=== PATIENT | male | born 1965 | race Caucasian/White ===

== ENCOUNTER → 2016-08-03 | Outpatient (CLI) | payer BC ==
[~2016-08-03] MED LIST: AMLO-110 PO; FEXO1TAB49 PO; IBUP-103 PO; LISI40TA PO; RIVA1TAB4 PO; TOPI25TA99 PO
--- NOTE | 2016-08-03 10:33 | DIAGNOSTIC IMAGING REPORT ---
LEFT LOWER EXTREMITY VENOUS DOPPLER HISTORY: Follow-up left lower extremity DVT. COMPARISON STUDY: Left lower extremity venous Doppler 05/01/2016. FINDINGS: There is normal compressibility, flow, and augmentation within the left lower extremity deep venous system. IMPRESSION: No DVT within the left lower extremity. Specifically, the left posterior tibial vein thrombus is no longer present. Electronically signed by: Subhash Cavanaugh M.D. 08/03/2016 10:31 AM Dictated Date/Time: 08/03/2016 10:30 AM
== END | disposition home or self-care (01) ==
LOC: C.ULTR 09:38
PROVIDERS: ATTEND Internal Medicine Hematology & Oncology
DX: I82.402 Acute embolism and thrombosis of unspecified deep veins of left lower extremity (principal)

== ENCOUNTER 2017-07-28 00:11 | Emergency (ER) | payer BC, OTHER ==
[~2017-07-28] VITALS: Ht 177.8 cm; Wt 112.0 kg
[2017-07-28 00:27] VITALS: Ht 177.8 cm; Wt 112.0 kg
[2017-07-28] MEDS ORDERED: OXYCODONE/ACETAMINOPHEN 5-325 TAB PO STA (00:52)
[2017-07-28] MEDS ORDERED: ASPI81TA28 PO (01:34)
[2017-07-28 02:16] VITALS: BP 147/96; PULSE 77; TEMP 36.7; O2SAT 97
--- NOTE | 2017-07-28 06:38 | DIAGNOSTIC IMAGING REPORT ---
HEAD CT NONCONTRAST CT DOSE: 651.12 mGy.cm HISTORY: Fall. Posterior head injury. TECHNIQUE: Multiaxial CT images of the head were performed without the use of intravenous contrast. Automated exposure control was utilized for this study. A dose lowering technique was utilized adhering to the principles of ALARA. Comparison: Head CT 10/25/2011. Findings: The paranasal sinuses and mastoid air cells are clear. The calvarium and skull base are intact. The ventricles and sulci are within normal limits. There is no mass, hematoma, midline shift, or acute infarct. Mild posterior scalp swelling. Impression: No acute intracranial abnormality. Electronically signed by: Subhash Cavanaugh M.D. 07/28/2017 6:37 AM Dictated Date/Time: 07/28/2017 6:35 AM
--- NOTE | 2017-07-29 04:41 | EMERGENCY ROOM VISIT NOTE ---
History First contact with patient: 00:32 Chief Complaint: HEAD INJURY (MINOR) Stated Complaint: HEAD WOUND,BLEEDING History of Present Illness The patient is a 51 year old male who presents to the Emergency Room with complaints of head injury after falling outside just prior to arrival. The patient lives locally and returned home from a trip this evening from [place]. The patient states that he got home, and went to walk his dog. The patient did not realize there was ice on his driveway because he was away, and states that he slipped backwards, and struck the back of his head on the driveway. The patient did not lose consciousness and remembers the events as they occurred. He was able to get into the house and noticed blood on the back of his head. He is reportedly up-to-date on his tetanus. He is not on blood thinners. He rates his discomfort a throbbing, nonradiating, 4/10. Review of Systems More than 10 systems were reviewed and otherwise negative with the exception of history of present illness. Past Medical/Surgical History Medical Problems: (1) Hypertension (2) Pulmonary embolism Family History Cancer Diabetes mellitus Hypertension Social History Smoking Status: Never Smoker Alcohol Use: none Drug Use: none Marital Status: Housing Status: lives with family Occupation Status: employed Current/Historical Medications Scheduled Amlodipine (Norvasc), 5 MG PO QPM Aspirin (Aspirin Ec), 81 MG PO DAILY Lisinopril (Prinivil), 40 MG PO QAM Physical Exam Vital Signs Date Time Temp Pulse Resp B/P (MAP) Pulse Ox O2 Delivery O2 Flow Rate FiO2 07/28/17 02:16 36.7 77 18 147/96 97 07/28/17 01:54 77 18 147/96 97 Room Air 07/28/17 00:27 36.7 84 18 163/113 98 Room Air Physical Exam VITALS: Vitals are noted on the nurse's note and reviewed by myself. Vital signs stable. GENERAL: Well-developed, well-nourished, white male, who is in no acute distress and resting comfortably. Patient is cooperative with the examination. HEAD: There is a 4 cm diameter fairly circular abraded area to the posterior scalp. There is no distinct laceration to require repair. This area was cleansed and dressed. EARS: External ear normal. External auditory canals clear, tympanic membranes pearly posey without erythema or effusion bilaterally. No hemotympanum EYES: Pupils equal round and reactive to light and accommodation. Conjunctivae without injection, sclerae without icterus. Extraocular movements intact. No hyphema NOSE: Patent, turbinates without inflammation or discharge. No epistaxis MOUTH: Mucous membranes moist. Tonsils are not enlarged. Pharynx without erythema, blood, or exudate. Uvula midline. Airway patent. NECK: Supple without nuchal rigidity. No lymphadenopathy. No thyromegaly. Cervical spine is nontender. HEART: Regular rate and rhythm without murmurs gallops or rubs. LUNGS: Clear to auscultation bilaterally without wheezes, rales or rhonchi. No retractions or accessory muscle use. MUSCULOSKELETAL: No muscle atrophy, erythema, or edema noted. Full range of motion without joint tenderness in all extremities. No tenderness to palpation. Normal gait. Strength 5/5 throughout. NEURO: Patient was alert and oriented to person place and time. CN II through XII grossly intact. GCS 15 Medical Decision & Procedures ER Provider Diagnostic Interpretation: HEAD CT NONCONTRAST CT DOSE: 651.12 mGy.cm HISTORY: Fall. Posterior head injury. TECHNIQUE: Multiaxial CT images of the head were performed without the use of intravenous contrast. Automated exposure control was utilized for this study. A dose lowering technique was utilized adhering to the principles of ALARA. Comparison: Head CT 10/25/2011. Findings: The paranasal sinuses and mastoid air cells are clear. The calvarium and skull base are intact. The ventricles and sulci are within normal limits. There is no mass, hematoma, midline shift, or acute infarct. Mild posterior scalp swelling. Impression: No acute intracranial abnormality. Medications Administered Medications (Trade) Dose Ordered Sig/Latonya Route Start Time Stop Time Status Last Admin Dose Admin Oxycodone/ Acetaminophen (Percocet 5-325mg Tab) 1 tab NOW STAT PO 07/28/17 00:52 07/28/17 00:54 DC 07/28/17 00:58 1 TAB ED Course Physical exam and history were performed. Nursing notes, EMR, and Medication List were personally reviewed. Patient appears to have fallen at home and suffered injury to his head as described above. On examination the patient appears well but does have hours signs of injury. He has an abrasion that does not require repair. He was given Percocet here in the department for pain control. CT scan of the head was performed, and does not show evidence of fracture or bleed. Overall the patient appears well for discharge home. He will be asked to follow with his primary care physician for further management. He was otherwise invited back ER anytime. The chart was completed utilizing [employer] Speech Voice Recognition Software. Grammatical errors, random word insertions, pronoun errors, and incomplete sentences are an occasional consequence of this system due to software limitations, ambient noise, and hardware issues. Any formal questions or concerns about the content, text, or information contained within the body of this dictation should be directly addressed to the provider for clarification. . Medical Decision Differential diagnosis: Etiologies such as concussion, contusion, fracture, subdural hematoma, epidural hematoma, intraparenchymal hemorrhage, as well as other traumatic pathologies were entertained. Impression Primary Impression: Closed head injury Additional Impressions: Scalp abrasion Fall Departure Information Dispostion Home / Self-Care Condition GOOD Forms HOME CARE DOCUMENTATION FORM, IMPORTANT VISIT INFORMATION Patient Instructions [facility] Additional Instructions You were seen and evaluated today on an emergency basis only. This is not a substitute for, or an effort to provide, complete comprehensive medical care. It is not possible to recognize and treat all injuries or illnesses in a single emergency department visit. For this reason it is recommended that you followup with your primary care physician this week with any ongoing care or evaluation. For baseline pain relief you may alternate ibuprofen and acetaminophen every 4 hours for pain control. Take 600 mg ibuprofen (Advil) and then 4 hours later take 1000 mg acetaminophen (Tylenol). Do not take more than 3000 mg acetaminophen in a single day. You are welcome to return to the emergency department anytime with new, worsening, or concerning symptoms. Problem Qualifiers
== END 2017-07-28 02:16 | disposition home or self-care (01) ==
LOC: C.EDB 00:12 → C.EDA 02:16
DX: S00.01XA Abrasion of scalp, initial encounter (principal); W00.0XXA Fall on same level due to ice and snow, initial encounter; Y93.51 Activity, roller skating (inline) and skateboarding; Y92.014 Private driveway to single-family (private) house as the place of occurrence of the external cause; I10 Essential (primary) hypertension; Z79.82 Long term (current) use of aspirin; Z80.9 Family history of malignant neoplasm, unspecified; Z83.3 Family history of diabetes mellitus; Z82.49 Family history of ischemic heart disease and other diseases of the circulatory system